=== PATIENT | female | born 1975 | race Caucasian/White ===

== ENCOUNTER → 2016-04-12 | Outpatient (CLI) | payer OTHER ==
[~2016-04-12] MED LIST: ARMOUR THYROID120 MG PO; CLARITIN10 MG PO; CPAP INH; K-TAB 10MEQ10 MEQ PO; LASIX40 MG PO; MAGNESIUM PO; NEURONTIN100 MG PO; NEXIUM 24HR22.3 MG PO; NICOTINE PATCH1 EAC1 TOP; NORCO 5-325 TA1 EACH PO; PROTONIX40 MG PO; TAMIFLU75 MG PO; TYLENOL EXTRA500 MG PO; VITAMIN D35000 UNI1 PO; X FACTOR PO; [UNRECOGNIZED DRUG - OTHER] PO
--- NOTE | ~2016-04-12 | PUL ---
PATIENT'S NAME: DAVE STERLING [facility] AGE: 41 Y [address] ROOM: [place] [address] LOCATION: [facility] ADMIT DATE: 04/12/2016 Pulmonary DISCHARGE DATE: FAMILY PHYSICIAN: RYLEY WHALEY MD ATTENDING PHYSICIAN: CHAI DOE NAME OF PROCEDURE: Pulmonary Function Test DATE OF PROCEDURE: April 12, 2016 TECH: KATIE Engel REASON FOR EXAM: Pulmonary hypertension RESULTS: 1. FVC was 2.08 liters which is 58% of predicted and low, FEV1 was 1.53 liters which is 52% of predicted and low, and FEV1/FVC was 74% and normal for patient's demographics. The flow volume curve did not reveal any significant airflow limitation. After bronchodilator administration FVC increased to 2.23 liters which is a 7% increase and FEV1 increased to 1.74 liters which is a 13% increase. FEV1/FVC was 78%. 2. DLCO was 14.4 with an adjusted DLCO of 15 which is 56% of predicted and low. 3. Total lung capacity was 3.33 liters which is 69% of predicted and low, and residual volume was 1.25 liters which is 79% of predicted and normal. PHYSICIAN INTERPRETATION: The patient has no airflow limitation but has a significant bronchodilator response. Her diffusion capacity is moderately low. There is evidence of moderately severe restrictive lung disease. MD MONIK GEE/dina /[id number] dtt: 04/15/16 1453 , CHAI DOE dtd: 04/15/16 1336
== END ==
LOC: GRTH 08:55
DX: I27.2 Other secondary pulmonary hypertension (principal)

== ENCOUNTER → 2016-04-17 | Outpatient (CLI) | payer OTHER ==
[2016-04-17 10:26] LABS: ALBUMIN 3.4 gm/dL (3.5-5.0); ALK PHOS 141 IU/L (33-138); ALT 35 IU/L (12-78); AST 15 IU/L (10-40); BLOOD UREA NITROGEN 14 mg/dL (6-24); CALCIUM 8.6 mg/dL (8.5-10.5); CHLORIDE 105 mMol/L (96-110); CO2 25 mMol/L (22-32); CREATININE 0.7 mg/dL (0.5-1.1); ESTIMATED GFR (MDRD EQUATION) > 60; SODIUM 140 mMol/L (135-145); TOTAL BILIRUBIN 0.5 mg/dL (0.0-1.5); TOTAL PROTEIN 6.8 g/dL (6.0-8.4)
== END | disposition disaster alternative care site (69) ==
LOC: LNHI 10:10
PROVIDERS: Internal Medicine Interventional Cardiology
DX: I50.32 Chronic diastolic (congestive) heart failure (principal); I27.2 Other secondary pulmonary hypertension; I31.3 Pericardial effusion (noninflammatory); G47.33 Obstructive sleep apnea (adult) (pediatric)

== ENCOUNTER → 2016-04-19 | Outpatient (CLI) | payer OTHER ==
--- NOTE | ~2016-04-19 | ESTC ---
Cardiac Perfusion Imaging Demographics Patient Name ASHER Flowers Gender Female Patient Number [id number] Race Visit Number [id number] Ethnicity Corporate ID Room Number Accession Number [id number] Height 63 inches Date of 1975 Weight 213 pounds Saniya Uribe Date of study 04/19/2016 Physician Saniya Supervising /STEPHANY FRANK Technologist Ordering Physician Mike Kothari pbx technician [facility] Stress ECG Reading Betsy Caballero APRN Nurse Estephania Cox RN Physician Medications Reviewed with Patient prior to Procedure. Procedure Admit Source:Other. Procedure Type: Nuclear Stress Test:Cardiolite Stress Test Procedure Start time: 04/19/2016 00:00 Indications: Pre surgical clearance and abnormal rest ECG. Risk Factors The patient risk factors include:obesity, Current/Recent(w/in 1 year) tobacco use, hypertension and family history of premature CAD. Conclusions Summary Perfusion Images: The overall quality of the study is good. Left ventricular cavity is noted to be normal on the stress and rest studies. There is no evidence of abnormal lung activity. The right ventricle is not visualized and cannot be assessed. Stress SPECT images and Rest SPECT images demonstrate homogenous tracer distribution throughout the myocardium. Gated SPECT imaging reveals normal myocardial thickening and wall motion. The left ventricular ejection fraction was calculated to be 63%. Impression ECG portion of stress test is clinically negative for ischemia by diagnostic criteria. Myocardial perfusion imaging is normal. Overall left ventricular systolic function was normal without regional wall motion abnormalities. There are no previous studies for comparison . Stress Protocols Resting ECG Normal sinus rhythm. Pre-stress physical exam: Patient assessed by Vitaliy JIMENEZ prior to testing. Chest - CTA Cardio - RRR, S1, S2 Predicted HR: 180 bpm HR response: Appropriate BP response: Appropriate Reason for termination:Infusion complete ECG Findings Arrhythmias No rhythm abnormality. Symptoms Shortness of breath. Chest Pressure Complications Procedure complication: None. Stress Interpretation Appropriate hemodynamic response to Lexiscan. No significant ST-T wave changes with Lexiscan, did have very minimal ST depression with lexiscan, nondiagnostic for ischemia.. ECG portion is negative for ischemia by diagnostic criteria. Will correlate with nuclear images. Imaging Results Summed scores - Summed stress score: 0 - Summed rest score: 3 - Summed difference score: -3 Stress ejection Ejection fraction:62 % EDV :112 ml ESV :42 ml Stroke volume :70 ml LV mass :149 gr Imaging Protocols Rest Stress Isotope:Tc99m Sestamibi IV Isotope: Tc99m Sestamibi IV Isotope dose:13.7 mCi Isotope dose:42.1 mCi Date:04/12/2016 07:50 Date:04/19/2016 09:06 Technique: SPECT Technique: Gated Supine SPECT Supine Scan Time:30 minutes post injection Scan Time:45-60 minutes post injection Procedure Medications - Regadenoson (Lexiscan) 0.4 mg IV over 10-15 sec. I.V. . Medical History Admission Data Admission date: 04/19/2016 Admission Time: 07:37 Hospital Status: Outpatient. Signatures dtt: SANIYA URIBE dtd: 04/19/16 0000 Physician Self Edit
== END | disposition disaster alternative care site (69) ==
LOC: GRAD 07:30
DX: Z01.818 Encounter for other preprocedural examination (principal); E66.9 Obesity, unspecified; I10 Essential (primary) hypertension; Z72.0 Tobacco use; Z82.49 Family history of ischemic heart disease and other diseases of the circulatory system
CPT/HCPCS: A9500; J2785

== ENCOUNTER → 2016-04-22 | Outpatient (CLI) | payer OTHER | END | disposition disaster alternative care site (69) | LOC: GRAD 08:57 | DX: N64.9 Disorder of breast, unspecified (principal); L76.32 Postprocedural hematoma of skin and subcutaneous tissue following other procedure ==

== ENCOUNTER → 2016-05-22 | Day surgery (SDC) | payer OTHER ==
[~2016-05-22] VITALS: Ht 160 cm; Wt 96.0 kg
--- NOTE | ~2016-05-22 | OR ---
PATIENT'S NAME: DAVE STERLING [facility] AGE: 41 Y [address] ROOM: [place] [address] LOCATION: [facility] ADMIT DATE: 05/22/2016 OR/Procedure Report DISCHARGE DATE: FAMILY PHYSICIAN: RYLEY WHALEY MD ATTENDING PHYSICIAN: Humphrey Andrews SURGEON: Humprhey Andrews MD ASSESSMENT ANALYST: DATE OF PROCEDURE: 05/22/2016 PREOPERATIVE DIAGNOSIS: Pelvic pain. 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 ANESTHESIA: Alvares, general. ESTIMATED BLOOD LOSS: Less than 20 mL. FINDINGS: Left fallopian tube cyst, which is a benign appearing cyst. No other abnormalities. DESCRIPTION OF PROCEDURE: The patient was brought to the OR and prepped and draped in routine fashion in dorsal lithotomy position. A Hulka clip manipulator was placed endocervically. An infraumbilical incision was made with passage of long 8 mm trocar without complication. CO2 was insufflated and the patient was then placed in Trendelenburg and under visualization, a 5 mm port was placed in the left lower quadrant. I could see right tube and ovary. They were freely mobile with no evidence of endometriosis. The left tube appeared to have a cyst and then the ovary was normal on the left side, but there was approximately a 4 cm cyst on the left tube. There were adhesions to the lower uterine segment, otherwise the posterior cul-de-sac was without abnormalities, and no evidence of endometriosis was found. I wanted to drain the cyst, but bowel was in my way, so I placed another port in the left upper quadrant under visualization. This was a 5 mm port and then I was able to grasp the tube and placed a needle to function out 15 mL of a greenish color fluid out of the cyst. I then looked and indeed this was just a simple cyst inferior to the fallopian tube. No other abnormalities were noted. So, the procedure was felt to be complete. All instruments were removed. CO2 was exsufflated and trocars were removed. I reapproximated all three skin incisions with 4-0 Vicryl in a subcuticular fashion and the Hulka clip manipulator was removed. The patient was extubated and taken to recovery room without incident. PATIENT'S NAME: BROWNDAVE [facility] AGE: 41 Y [address] ROOM: [place], [place] [address] LOCATION: [facility] ADMIT DATE: 05/22/2016 OR/Procedure Report DISCHARGE DATE: FAMILY PHYSICIAN: RYLEY WHALEY MD ATTENDING PHYSICIAN: Humphrey Andrews MD DORINDA CROWDER/raizal /[id number] d: 05/22/162014 t: 06/18/16899, OPERATIVE SUMMARY
== END | disposition disaster alternative care site (69) ==
LOC: GPOC 05-15 08:00 → GSDC 08:00
PROC: 0U964ZZ Drainage of Left Fallopian Tube, Percutaneous Endoscopic Approach (ICD-10-PCS; principal; 2016-05-22)
DX: Q50.5 Embryonic cyst of broad ligament (principal); R10.2 Pelvic and perineal pain; G47.33 Obstructive sleep apnea (adult) (pediatric); K21.9 Gastro-esophageal reflux disease without esophagitis; E78.5 Hyperlipidemia, unspecified; E03.9 Hypothyroidism, unspecified; F34.1 Dysthymic disorder; F17.210 Nicotine dependence, cigarettes, uncomplicated; F32.9 Major depressive disorder, single episode, unspecified; D72.829 Elevated white blood cell count, unspecified; E66.9 Obesity, unspecified; Z68.38 Body mass index [BMI] 38.0-38.9, adult; Z88.0 Allergy status to penicillin; Z88.2 Allergy status to sulfonamides; Z88.8 Allergy status to other drugs, medicaments and biological substances; Z91.040 Latex allergy status; Z90.49 Acquired absence of other specified parts of digestive tract; Z98.890 Other specified postprocedural states
CPT/HCPCS: J1100; J2250; J2405; J3010; J7030

== ENCOUNTER 2016-07-03 22:32 | Emergency (ER) | payer OTHER ==
--- NOTE | ~2016-07-03 | ER ---
PATIENT'S NAME: DAVE STERLING [facility] AGE: 41 Y [address] ROOM: [place] [address] LOCATION: [facility] ADMIT DATE: 07/03/2016 ER/Outpatient Report DISCHARGE DATE: FAMILY PHYSICIAN: Doris Shearer MD ATTENDING PHYSICIAN: Jose Guadalupe Jackson Admission date and time documented in the medical record. I saw the patient at 2250 hours. CHIEF COMPLAINT: Right-side abdominal pain. HISTORY OF PRESENT ILLNESS: The patient is a 41-year-old female, who comes in with a right-sided abdominal pain, off and on over the past 2 days, pretty steady, and constant tonight. Some nausea, but no vomiting or diarrhea. No urinary frequency, urgency, or dysuria. No spine pain. Does have chronic coccyx pain. No chest pain, shortness of breath. No fall or trauma. No recent colds, coughs, flus, fever, chills, or sweats. No headache, eyes, ears, nose, throat, neck, or spine pain other than the coccyx pain. No syncope or near syncope. No joint or muscle swelling, redness, or pain. No skin eruptions or rash. No history of neuro changes, psych issues. Does have hypothyroidism. HOME MEDICATIONS: See attached medication list. ALLERGIES: ASPIRIN, CODEINE, ERYTHROMYCIN, LATEX, NICKEL, PENICILLIN, SULFA. SOCIAL HISTORY: The patient smokes a pack of cigarettes per day. Occasional intake of alcohol. SIGNIFICANT PAST MEDICAL HISTORY: Hypothyroidism, obstructive sleep apnea, dyslipidemia, tobacco abuse, fibromyalgia, exogenous obesity, gastroesophageal reflux. OPERATIONS: Abdominal laparoscopy with cyst excision, left fallopian tube; appendectomy, bilateral breast reduction, tonsillectomy, cholecystectomy. REVIEW OF SYSTEMS: All systems reviewed by me are negative with the exception of those discussed in the history of present illness. PATIENT'S NAME: DAVE STERLING [facility] AGE: 41 Y [address] ROOM: [place] [address] LOCATION: [facility] ADMIT DATE: 07/03/2016 ER/Outpatient Report DISCHARGE DATE: FAMILY PHYSICIAN: Doris Shearer MD ATTENDING PHYSICIAN: Jose Guadalupe Jackson PHYSICAL EXAMINATION: VITAL SIGNS: Temperature 98.1 tympanic, pulse 82, respirations 20, blood pressure 135/68, O2 saturation on room air is 98%. HEAD: Normocephalic. EYES, EARS, NOSE, THROAT: Clear. NECK: No nuchal rigidity. No thyromegaly or cervical adenopathy. LUNGS: Clear. Good air flow. No rales, rhonchi, or wheezes. HEART: Regular. Pulses are palpable. No chest wall or ribcage pain to palpation. ABDOMEN: Soft, nondistended. Tender in the right abdomen. No true guarding or rigidity. No rebound tenderness. Active bowel tones. No organomegaly or abnormal mass palpable. No true CVA tenderness. PELVIS: Stable. EXTREMITIES: Negative. No peripheral edema, cyanosis, or deformity. NEUROVASCULAR: Intact. SKIN: Clear. No skin eruptions or rash. LABORATORY DATA: Procalcitonin was less than 0.05. Lactate was 0.9. White count 16,700, 62 segs, 31 lymphs, 6 monos, 1 eosinophil, hemoglobin was 14.8, hematocrit 45.0, platelet count 287,000, sedimentation rate was normal at 9. Urine showed negative whites, 2-5 reds, 2-5 epithelial cells, negative bacteria per high- powered field. CMS was normal except for a low potassium at 3.5, low calcium of 8.4. Amylase and lipase were normal. CRP was elevated at 1.27. CT scan of the abdomen and pelvis with IV contrast showed a nondisplaced inferior coccyx fracture. No free air or free fluid. No bowel obstruction. Nonspecific retroperitoneal mesenteric lymph nodes. Small periportal lymph node. Heterogeneous liver attenuation without discrete mass. Pulmonary nodule as described in the radiology interpretation. CT scan was read by Radiology, see dictated transcribed report. EMERGENCY DEPARTMENT COURSE: I did give the patient IV fluids, IV Dilaudid for pain, IV Zofran for nausea. IMPRESSION: 1. Right-sided abdominal pain. Etiology uncertain. Essentially normal. CT scan of the abdomen and pelvis. She does have some type of inferior coccyx changes. There is no bowel obstruction. No free air or free fluid. Normal appendix. Normal bowel. Some nonspecific lymph node enlargement. 2. Hypothyroidism. 3. Obstructive sleep apnea. 4. Tobacco abuse. 5. Dyslipidemia. PATIENT'S NAME: DAVE STERLING [facility] AGE: 41 Y [address] ROOM: [place], [place] [address] LOCATION: [facility] ADMIT DATE: 07/03/2016 ER/Outpatient Report DISCHARGE DATE: FAMILY PHYSICIAN: Doris Shearer MD ATTENDING PHYSICIAN: Jose Guadalupe Jackson 6. Fibromyalgia. 7. Exogenous obesity. 8. Gastroesophageal reflux. 9. 4 mm lung nodule. PLAN: The patient dismissed home. Observation. Activity as tolerated. Continue present home medications and care. Percocet as needed for pain. Ativan 3 times a day. Follow up with personal physician in 1 to 2 days. Discussion ensued with the patient concerning my findings and recommendations, she understands. JOSE GUADALUPE JACKSON MD SDS/modl /[id number] d: 07/04/160 t: 07/04/16 1821, OUTPATIENT REPORT
[2016-07-03 23:28] LABS: HEMOGLOBIN 14.8 g/dL (10.0-15.0); MCH 26.9 pg (27.0-34.0); MCHC 32.9 gm/dL (32.0-36.5); MCV 81.8 fl (83.0-98.0); MPV 9.5 fl (9.4-12.4); PLATELET COUNT 287 K/uL (150-450)
[2016-07-03 23:29] LABS: WBC 16.7 K/uL (4.0-11.0)
[2016-07-03 23:41] LABS: BILIRUBIN URINE NEGATIVE (NEGATIVE); BLOOD URINE 25 /UL (NEGATIVE); COLOR URINE YELLOW (YELLOW); GLUCOSE URINE NEGATIVE (NEGATIVE); KETONE URINE NEGATIVE (NEGATIVE); LEUKOCYTES URINE NEGATIVE /UL (NEGATIVE); NITRITE URINE NEGATIVE (NEGATIVE); PROTEIN URINE NEGATIVE (NEGATIVE); TURBIDITY URINE CLEAR (CLEAR); UROBILINOGEN URINE NORMAL (NORMAL)
[2016-07-03 23:50] LABS: ALBUMIN 3.3 gm/dL (3.5-5.0); ALK PHOS 137 IU/L (33-138); ALT 36 IU/L (12-78); ANION GAP 11.5 (10.0-19.0); AST 14 IU/L (10-40); BLOOD UREA NITROGEN 19 mg/dL (6-24); CALCIUM 8.4 mg/dL (8.5-10.5); CHLORIDE 106 mMol/L (96-110); CO2 26 mMol/L (22-32); CREATININE 0.7 mg/dL (0.5-1.1); ESTIMATED GFR (MDRD EQUATION) > 60; POTASSIUM 3.5 mMol/L (3.7-5.1); SODIUM 140 mMol/L (135-145); TOTAL BILIRUBIN 0.5 mg/dL (0.0-1.5); TOTAL PROTEIN 6.6 g/dL (6.0-8.4)
[2016-07-04] LABS: BACTERIA URINE NEGATIVE (NEGATIVE); WBC URINE NEGATIVE #/HPF (NEGATIVE)
[2016-07-04 00:05] LABS: ABSOLUTE NEUTROPHIL CT (ANC) 10.4 K/uL (1.8-7.8); LYMPHOCYTE # 5.2 K/uL (0.8-4.0); LYMPHOCYTE % 31 %; SEGMENTED NEUTROPHIL # 10.4 K/uL (1.8-7.8); SEGMENTED NEUTROPHIL % 62 %
== END 2016-07-04 01:40 | disposition disaster alternative care site (69) ==
LOC: GMED 22:32
PROVIDERS: Emergency Medicine
DX: R10.9 Unspecified abdominal pain (principal); F17.210 Nicotine dependence, cigarettes, uncomplicated; E78.5 Hyperlipidemia, unspecified; G47.33 Obstructive sleep apnea (adult) (pediatric); E66.09 Other obesity due to excess calories; Z90.49 Acquired absence of other specified parts of digestive tract; Z90.89 Acquired absence of other organs; E03.9 Hypothyroidism, unspecified; Z88.1 Allergy status to other antibiotic agents; Z88.0 Allergy status to penicillin; Z88.2 Allergy status to sulfonamides; Z91.040 Latex allergy status; Z88.6 Allergy status to analgesic agent; Z88.5 Allergy status to narcotic agent; M79.7 Fibromyalgia; Z79.899 Other long term (current) drug therapy
CPT/HCPCS: J1170; J2405; J7030; Q9967

== ENCOUNTER 2016-10-13 02:11 | Emergency (ER) | payer OTHER ==
--- NOTE | ~2016-10-13 | ER ---
PATIENT'S NAME: DAVE STERLING [facility] AGE: 41 Y [address] ROOM: [place] [address] LOCATION: [facility] ADMIT DATE: 10/13/2016 ER/Outpatient Report DISCHARGE DATE: 10/13/2016 FAMILY PHYSICIAN: Doris Shearer MD ATTENDING PHYSICIAN: Alirio Jackson Admission date and time documented on the medical record. I saw the patient at 0230 hours. CHIEF COMPLAINT: Anterior chest pain. HISTORY OF PRESENT ILLNESS: This patient is a 41-year-old female, who comes in with about a 2-day history of anterior chest pain, sharp and stabbing in nature, mid anterior, nonradiating. It hurts when she moves, takes deep breath. No fall or trauma. Getting worse over the past 24 to 48 hours. No fever, chills, or sweats. She has a nonproductive cough. No colds or flu. No abdominal pain, nausea, vomiting, diarrhea, or urinary frequency, urgency, or dysuria. No lightheadedness, dizziness, syncope, or near syncope. No fall or trauma. No headache, eyes, ears, nose, throat, neck, or spine pain. No joint or muscle swelling or pain. No skin eruptions or rash. No neuro changes or psych issues or endocrine problems. HOME MEDICATIONS: See attached medication list. ALLERGIES: ASPIRIN, CODEINE, ERYTHROMYCIN, LATEX, NICKEL, PENICILLIN, SULFA. SOCIAL HISTORY: The patient smokes about a pack of cigarettes a day. Occasional intake of alcohol. SIGNIFICANT PAST MEDICAL HISTORY: Obstructive sleep apnea, pulmonary hypertension, tobacco abuse, hypothyroidism, dyslipidemia, fibromyalgia, exogenous obesity, gastroesophageal reflux. OPERATIONS: Abdominal laparoscopy with cyst excision of the left fallopian tube, appendectomy, bilateral breast reduction, tonsillectomy, cholecystectomy. REVIEW OF SYSTEMS: All systems reviewed by me are negative with the exception of those discussed PATIENT'S NAME: DAVE STERLING [facility] AGE: 41 Y [address] ROOM: [place] [address] LOCATION: [facility] ADMIT DATE: 10/13/2016 ER/Outpatient Report DISCHARGE DATE: 10/13/2016 FAMILY PHYSICIAN: Doris Shearer MD ATTENDING PHYSICIAN: Alirio Jackson in the history of present illness. PHYSICAL EXAMINATION: Vital Signs: Pulse 78, respirations 16, blood pressure 144/67, O2 saturation on room air is 95%. HEAD: Normocephalic. EYES EARS, NOSE, THROAT: Clear. Mucous membranes moist. Teeth, jaw intact. NECK: No nuchal rigidity. No thyromegaly or cervical adenopathy. No tenderness. SPINE: Nontender. No deformity. LUNGS: Clear. Good air flow. No rales, rhonchi, or wheezes. HEART: Regular. Pulses are palpable. The patient has anterior chest pain to palpation reproducing her pain. ABDOMEN: Soft, moderately obese, nontender, good bowel tones. No organomegaly or abnormal mass palpable. No CVA tenderness. EXTREMITIES: No peripheral edema, cyanosis, or deformity. NEUROVASCULAR: Intact. SKIN: Clear. No skin eruptions or rash. LABORATORY DATA AND X-RAYS: Chest x-ray showed no acute infiltrate or changes. We will review x-rays with the radiologist. EKG shows sinus rhythm. No acute ST elevation or ischemic change or arrhythmia. LABORATORY DATA: White count was 12,000, 57 segs, 31 lymphs, 9 monos, 3 eos, 1 baso. Hemoglobin was 14.6, hematocrit 43.1, platelet count was 305,000. PTT was 30, pro-time was 10, with an INR 0.95. CMS was normal except for elevated glucose 126, low calcium 8.3, elevated alkaline phosphatase 147. Magnesium normal 2.2. CPK was normal 76. Iydii-oa-ptkb cardiac enzymes were normal. ProBNP was normal at 45. IMPRESSION: 1. Anterior chest pain, etiology uncertain, but most likely musculoskeletal. No evidence of cardiac or pulmonary changes or problems. 2. Fibromyalgia. 3. Obstructive sleep apnea. 4. Hypothyroidism. 5. Gastroesophageal reflux. PLAN: The patient was given Toradol 60 mg IM in the emergency room, Solu-Medrol 125 mg IM in the emergency room. Discharged home. Observation. Activity as tolerated. Continue present home medications and care. Toradol 10 mg 1 every 6 hours x12 doses, Medrol Dosepak take as directed. Heating pad to anterior PATIENT'S NAME: DAVE STERLING [facility] AGE: 41 Y [address] ROOM: [place] [address] LOCATION: [facility] ADMIT DATE: 10/13/2016 ER/Outpatient Report DISCHARGE DATE: 10/13/2016 FAMILY PHYSICIAN: Doris Shearer MD ATTENDING PHYSICIAN: Alirio Jackson chest wall intermittently as needed. Follow up with personal physician in 1 to 2 days. Discussion ensued with the patient concerning my findings and recommendations, she understands. MD VIKI MENENDEZ/modl /[id number] d: 10/13/16 0354 t: 10/13/16 1809, OUTPATIENT REPORT
[2016-10-13 02:46] LABS: BASOPHIL # 0.1 K/uL (0.0-0.2); BASOPHIL % 0.5 %; EOSINOPHIL # 0.3 K/uL (0.0-0.5); EOSINOPHIL % 2.5 %; HEMATOCRIT 43.1 % (33.0-46.0); HEMOGLOBIN 14.6 g/dL (10.0-15.0); IMMATURE GRANULOCYTE # 0.1 K/uL (0.0-0.3); IMMATURE GRANULOCYTE % 0.5 %; LYMPHOCYTE # 3.7 K/uL (0.8-4.0); MCH 29.7 pg (27.0-34.0); MCHC 33.9 gm/dL (32.0-36.5); MCV 87.6 fl (83.0-98.0); MONOCYTE # 1.1 K/uL (0.0-1.0); MONOCYTE % 8.8 %; MPV 9.8 fl (9.4-12.4); NEUTROPHIL # (ANC) 6.8 K/uL (1.8-7.8); NEUTROPHIL % 56.7 %; NRBC % 0 /100WBC (0-0.00); PLATELET COUNT 305 K/uL (150-450); RBC 4.92 M/uL (3.50-5.50); RDW-CV 11.9 % (11.9-14.6)
[2016-10-13 02:57] LABS: INR - (THERAPEUTIC) 0.95 (0.92-1.07); PTT 30 SECONDS (25-32)
[2016-10-13 03:05] LABS: ALBUMIN 3.4 gm/dL (3.5-5.0); ALK PHOS 147 IU/L (33-138); ALT 31 IU/L (12-78); ANION GAP 11.7 (10.0-19.0); AST 19 IU/L (10-40); BLOOD UREA NITROGEN 17 mg/dL (6-24); CALCIUM 8.3 mg/dL (8.5-10.5); CHLORIDE 106 mMol/L (96-110); CO2 24 mMol/L (22-32); CPK 76 IU/L (21-215); CREATININE 0.8 mg/dL (0.5-1.1); MAGNESIUM 2.2 mg/dL (1.8-2.6); POTASSIUM 3.7 mMol/L (3.7-5.1); SODIUM 138 mMol/L (135-145); TOTAL BILIRUBIN 0.5 mg/dL (0.0-1.5); TOTAL PROTEIN 7.2 g/dL (6.0-8.4)
== END 2016-10-13 03:29 | disposition disaster alternative care site (69) ==
LOC: GMED 02:11
PROVIDERS: Emergency Medicine
DX: R07.89 Other chest pain (principal); M79.7 Fibromyalgia; G47.33 Obstructive sleep apnea (adult) (pediatric); E03.9 Hypothyroidism, unspecified; K21.9 Gastro-esophageal reflux disease without esophagitis; E78.5 Hyperlipidemia, unspecified; E66.9 Obesity, unspecified; Z88.6 Allergy status to analgesic agent; Z88.5 Allergy status to narcotic agent; Z88.1 Allergy status to other antibiotic agents; Z91.040 Latex allergy status; Z88.0 Allergy status to penicillin; Z88.2 Allergy status to sulfonamides; Z91.09 Other allergy status, other than to drugs and biological substances; Z79.899 Other long term (current) drug therapy; Z98.890 Other specified postprocedural states; Z90.49 Acquired absence of other specified parts of digestive tract; Z90.89 Acquired absence of other organs
CPT/HCPCS: J1885; J2930